=== PATIENT | female | born 1980 | race Caucasian/White ===

== ENCOUNTER 2019-06-17 22:08 | Emergency (ER) | payer MEDICAID ==
[~2019-06-17] VITALS: Ht 167.6 cm; Wt 74.8 kg
[2019-06-18 00:25] VITALS: BP 140/71
[2019-06-18] MEDS ORDERED: ACETAMINOPHEN/CODEINE#3 (300/30mg) TAB PO ONE (00:45)
== END 2019-06-18 00:55 | disposition home or self-care (01) ==
LOC: ER 22:10
DX: M25.562 Pain in left knee (principal); Z88.6 Allergy status to analgesic agent
CPT/HCPCS: 73562

== ENCOUNTER 2019-07-26 23:29 | Emergency (ER) | payer MEDICAID ==
[~2019-07-26] VITALS: Ht 167.6 cm; Wt 74.8 kg
[2019-07-27 00:06] VITALS: BP 127/72
[2019-07-27 00:22] LABS: Hemoglobin 7.7 g/dL (12.2-16.2); Red Blood Cells 3.86 10^6/uL (4.0-5.20); White Blood Cell 6.2 10^3/uL (4.4-10.8)
[2019-07-27 00:23] LABS: Hematocrit 26.3 % (36.0-46.0); Mean Corpuscular Hgb Conc. 29.4 g/dL (32.0-36.0); Platelet Count (auto) 285 10^3/uL (140-450); Red Cell Distribution Width 19.4 % (11.8-14.3)
[2019-07-27 00:30] LABS: Albumin 3.3 g/dL (3.4-5.0); BUN/Creatinine Ratio 9.7; Calcium 7.9 mg/dL (8.5-10.1); Magnesium 1.9 mg/dL (1.6-2.6); Potassium 3.5 mmol/L (3.5-5.1)
[2019-07-27 00:32] LABS: Basophils % (manual) 0 (0.0-2.0); Blast Cells 0; Metamyelocytes % 0; Myelocytes % 0; Promyelocytes % 0; Reactive Lymphocytes 0
[2019-07-27 00:33] LABS: Urine Amorphous Crystal FEW /hpf (None Seen); Urine Bacteria FEW /hpf (None Seen); Urine Blood Negative /uL (Negative); Urine Specific Gravity 1.008 (1.001-1.035); Urine WBC 10 /hpf (0 - 5)
[2019-07-27 00:35] LABS: Bilirubin, Total 0.2 mg/dL (0.2-1.0); Partial Thromboplastin Time 27.1 sec (23.64-32.05); Total Protein 7.3 g/dL (6.4-8.2)
[2019-07-27 01:45] LABS: Band Neutrophils % (manual) 1; Eosinophils % (manual) 1 (0-7); Lymphocytes % (manual) 47 (10.0-50.0); Monocytes % (manual) 3 (0-12)
== END 2019-07-27 01:45 | disposition home or self-care (01) ==
LOC: ER 23:32
DX: R42 Dizziness and giddiness (principal); N30.00 Acute cystitis without hematuria; F17.210 Nicotine dependence, cigarettes, uncomplicated; Z88.6 Allergy status to analgesic agent
CPT/HCPCS: 36415; 80053; 81001; 81025; 83735; 84484; 85007; 85027; 85610; 85730; 93005

== ENCOUNTER → 2020-04-19 | Outpatient (CLI) | payer OTHER | END | disposition home or self-care (01) | LOC: LAB 06:54 | PROVIDERS: ATTEND Nurse Practitioner Family | DX: Z20.828 Contact with and (suspected) exposure to other viral communicable diseases (principal) ==

== ENCOUNTER 2020-04-23 04:07 | Emergency (ER) | payer MEDICAID, OTHER ==
[~2020-04-23] VITALS: Ht 167.6 cm; Wt 74.8 kg
[2020-04-23] MEDS ORDERED: methylPREDNISolone SOD SUCC 125 MG/2 ML VL IM ONE (04:30)
[2020-04-23] MEDS ORDERED: LORATADINE 10 MG TAB PO ONE (04:30)
[2020-04-23 05:11] VITALS: BP 118/76
== END 2020-04-23 05:12 | disposition home or self-care (01) ==
LOC: EEVIPCON 04:07 → ER 04:07
DX: T78.40XA Allergy, unspecified, initial encounter (principal); F17.210 Nicotine dependence, cigarettes, uncomplicated; Z88.2 Allergy status to sulfonamides; Z88.6 Allergy status to analgesic agent; X58.XXXA Exposure to other specified factors, initial encounter
CPT/HCPCS: 96372; 99283; J2930

== ENCOUNTER 2020-04-28 04:17 | Inpatient (IN) | payer BC, MEDICAID ==
[~2020-04-28] VITALS: Ht 167.6 cm; Wt 72.0 kg
[2020-04-28 08:17] LABS: Hematocrit 20.7 % (36.0-46.0); Mean Corpuscular Hemoglobin 19.1 pg (28.0-32.0)
[2020-04-28 08:19] LABS: Mean Corpuscular Volume 67.9 fL (80.0-100.0); Platelet Count (auto) 210 10^3/uL (140-450); Red Blood Cells 3.04 10^6/uL (4.0-5.20); White Blood Cell 4.9 10^3/uL (4.4-10.8)
[2020-04-28 08:36] LABS: Calcium 7.5 mg/dL (8.5-10.1); Potassium 3.5 mmol/L (3.5-5.1)
[2020-04-28 08:37] LABS: Hemoglobin 5.8 g/dL (12.2-16.2); Red Cell Distribution Width 20.5 % (11.8-14.3)
[2020-04-28 08:39] LABS: Basophils % (manual) 0 (0.0-2.0); Blast Cells 0; Metamyelocytes % 0; Myelocytes % 0; Promyelocytes % 0; Reactive Lymphocytes 0
[2020-04-28 08:40] LABS: Bilirubin, Total 0.3 mg/dL (0.2-1.0); Total Protein 5.9 g/dL (6.4-8.2)
[2020-04-28 08:55] LABS: Band Neutrophils % (manual) 3; Eosinophils % (manual) 2 (0-7); Lymphocytes % (manual) 53 (10.0-50.0); Monocytes % (manual) 6 (0-12)
[2020-04-28] MEDS ORDERED: MORPHINE SULF INJ 2 MG/ML SYRINGE 1ML IV PRN (10:15)
[2020-04-28] MEDS ORDERED: NITROGLYCERIN 0.4 MG SL TAB SL PRN (10:15)
[2020-04-28] MEDS ORDERED: traMADol HCL 50 MG TAB PO PRN (10:30)
[2020-04-28] MEDS ORDERED: ACETAMINOPHEN 500 MG TAB PO PRN (10:30)
[2020-04-28] MEDS ORDERED: TEMAZEPAM 15 MG CAP PO PRN (10:30)
[2020-04-28] MEDS ORDERED: PROMETHAZINE HCL 25 MG/ML 1ML IV PRN (10:30)
[2020-04-28 10:52] LABS: % Iron Saturation 1.9 % (15-50)
[2020-04-28] MEDS: SODIUM CHLORIDE 0.9% 1,000 ML IV SCH ×2 (11:07→16:21)
[2020-04-28 11:29] VITALS: BP 121/77
--- NOTE | 2020-04-28 11:45 | NUR ---
RECEIVED REPORT FROM MELISSA HANSON IN ER WILL AWAIT PATIENT.
[2020-04-28 12:05] VITALS: BP 130/77
--- NOTE | 2020-04-28 12:05 | NUR ---
RECEIVED PATIENT TO THE FLOOR, AWAKE ALERT AND ORIENTED. BED LOCKED IN LOWEST POSITION WITH TWO SIDE RAILS UP AND CALL LIGHT IN REACH. INSTRUCTED THE PATIENT ON THE PLAN OF CARE. PATIENT CURRENTLY HAS BLOOD TRANSFUSING WITH NO S/S OF DISTRESS NOTED WILL INCREASE BLOOD RATE FROM 100ML/HR TO 150ML/HR. VS TAKEN UPON ARRIVAL AND CHARTED IN TRANSFUSION HISTORY. WILL RE ASSES PATIENTS VS WHEN TRANSFUSION IS COMPLETE.
--- NOTE | 2020-04-28 12:37 | NUR ---
MED REC PER PATIENT: SHE TAKES NO HOME MEDICATIONS
[2020-04-28 13:50] VITALS: BP 122/72
--- NOTE | 2020-04-28 13:50 | NUR ---
TRANSFUSION COMPLETE. PATIENT TOLERATED WELL NO S/S OF DISTRESS NOTED. VS DOCUMENTED ON BLOOD TRANSFUSION SHEET.
[2020-04-28 14:47] LABS: Folate (Folic Acid) 12.49 ng/mL (5.38-24)
[2020-04-28 17:00] VITALS: BP 107/70
[2020-04-28] MEDS: SUCRALFATE 1 GM/10 ML ORAL SUSP PO SCH ×2 (17:43→22:07)
[2020-04-28 18:58] LABS: Hematocrit 24.4 % (36.0-46.0); Hemoglobin 7.4 g/dL (12.2-16.2)
[2020-04-28 21:45] VITALS: BP 124/62
[2020-04-28] MEDS: FAMOTIDINE 20 MG TAB PO SCH (22:07)
[2020-04-28] MEDS: MORPHINE SULF INJ 2 MG/ML SYRINGE 1ML IV PRN (22:07)
[2020-04-29] VITALS (9 sets, daily range): BP systolic 109–125; BP diastolic 61–79
[2020-04-29 00:59] LABS: Hematocrit 22.4 % (36.0-46.0)
[2020-04-29 01:09] LABS: Hemoglobin 6.6 g/dL (12.2-16.2)
--- NOTE | 2020-04-29 01:10 | NUR ---
CRITICAL HGB OF 6.6 RECEIVED. HOSPITALIST PAGED, AWAITING CALL BACK.
--- NOTE | 2020-04-29 01:25 | NUR ---
ORDERS RECEIVED AND BEING CARRIED OUT
[2020-04-29] MEDS: SODIUM CHLORIDE 0.9% 1,000 ML IV SCH ×3 (02:16→17:53)
[2020-04-29] MEDS: SUCRALFATE 1 GM/10 ML ORAL SUSP PO SCH ×4 (06:32→22:55)
--- NOTE | 2020-04-29 08:00 | NUR ---
Opening Shift Note Assumed care of patient, awake, alert and oriented X4. No S/S of distress/SOB or pain. Tele# 80, sinus rhythm @ 72 bpm. IV X2, right antecubital, 20 gauge, patent and infusing PRBC's and right hand, 22 gauge, patent and infusing 0.9% NS @ 125 ml/hr. Patient has bilateral axillary rash, see wound care pictures. Instructed on POC and to call for assist PRN, verbalized understanding. Bed locked, in lowest position, call light within reach, will continue to monitor for changes Q1hr and PRN.
--- NOTE | 2020-04-29 08:42 | NUR ---
PRBC's PRBC's completed. No adverse reaction noted.
[2020-04-29 10:04] LABS: Hemoglobin 7.3 g/dL (12.2-16.2); White Blood Cell 4.7 10^3/uL (4.4-10.8)
[2020-04-29 10:06] LABS: Hematocrit 24.4 % (36.0-46.0); Mean Corpuscular Hemoglobin 21.3 pg (28.0-32.0); Mean Corpuscular Hgb Conc. 30.1 g/dL (32.0-36.0); Mean Corpuscular Volume 70.8 fL (80.0-100.0); Platelet Count (auto) 201 10^3/uL (140-450); Red Blood Cells 3.44 10^6/uL (4.0-5.20)
[2020-04-29 10:23] LABS: Red Cell Distribution Width 22.5 % (11.8-14.3)
[2020-04-29 10:25] LABS: Band Neutrophils % (manual) 0; Basophils % (manual) 0 (0.0-2.0); Blast Cells 0; Metamyelocytes % 0; Myelocytes % 0; Promyelocytes % 0; Reactive Lymphocytes 0
[2020-04-29] MEDS: FAMOTIDINE 20 MG TAB PO SCH ×2 (10:55→22:55)
[2020-04-29 11:45] LABS: Eosinophils % (manual) 2 (0-7); Lymphocytes % (manual) 46 (10.0-50.0); Monocytes % (manual) 4 (0-12)
[2020-04-29 13:19] LABS: Hematocrit 24.1 % (36.0-46.0)
[2020-04-29 13:21] LABS: Hemoglobin 7.2 g/dL (12.2-16.2)
--- NOTE | 2020-04-29 14:01 | NUR ---
GI Dr Gonzales Llanos at bedside for GI follow up. New orders received and followed through. Patient updated on plan of care, verbalized understanding.
[2020-04-29] MEDS ORDERED: CYANOCOBALAMIN (B-12) 1000 MCG/1 ML VIAL IM ONE (15:00)
[2020-04-29 18:25] LABS: Hematocrit 28.2 % (36.0-46.0); Hemoglobin 8.3 g/dL (12.2-16.2)
[2020-04-29 18:33] LABS: INR 1.03 (0.9-1.15)
--- NOTE | 2020-04-29 19:11 | NUR ---
Care endorsed to VALENTIN Ackerman, night nurse.
[2020-04-29 20:49] LABS: Urine Bacteria NONE SEEN /hpf (None Seen); Urine Blood Negative /uL (Negative); Urine Specific Gravity 1.005 (1.001-1.035); Urine WBC 1 /hpf (0 - 5)
[2020-04-30] MEDS: SODIUM CHLORIDE 0.9% 1,000 ML IV SCH ×3 (02:16→14:14)
[2020-04-30] MEDS: MORPHINE SULF INJ 2 MG/ML SYRINGE 1ML IV PRN (04:46)
[2020-04-30 05:00] VITALS: BP 116/75
[2020-04-30 06:21] LABS: Basophils # (auto) 0 10 ^3/uL (0-0.2); Basophils % (auto) 0.7 % (0.0-2.0); Eosinophils # (auto) 0.1 10 ^3/uL (0-0.8); Eosinophils % (auto) 1.6 % (0.0-7.0); Hematocrit 25.6 % (36.0-46.0); Hemoglobin 7.7 g/dL (12.2-16.2); Lymphocytes # (auto) 2.2 10 ^3/uL (0.4-5.4); Lymphocytes % (auto) 48.9 % (10.0-50.0); Mean Corpuscular Hemoglobin 21.6 pg (28.0-32.0); Mean Corpuscular Hgb Conc. 30.3 g/dL (32.0-36.0); Mean Corpuscular Volume 71.3 fL (80.0-100.0); Monocytes # (auto) 0.4 10 ^3/uL (0-1.3); Monocytes % (auto) 8.3 % (0.0-12.0); Neutrophils # (auto) 1.8 10 ^3/uL (1.6-8.6); Neutrophils % (auto) 40.5 % (37.0-80.0); Platelet Count (auto) 205 10^3/uL (140-450); Red Blood Cells 3.59 10^6/uL (4.0-5.20); White Blood Cell 4.5 10^3/uL (4.4-10.8)
[2020-04-30 06:23] LABS: Red Cell Distribution Width 22.8 % (11.8-14.3)
[2020-04-30 06:36] LABS: BUN/Creatinine Ratio 13.2; Calcium 7.3 mg/dL (8.5-10.1); Potassium 3.5 mmol/L (3.5-5.1)
[2020-04-30] MEDS: SUCRALFATE 1 GM/10 ML ORAL SUSP PO SCH ×4 (06:43→22:09)
--- NOTE | 2020-04-30 07:47 | NUR ---
PROCEDURE SCHEDULE PER DR Gonzales [place] PATIENT TO HAVE EGD DONE AT 1330 TODAY PATIENT ADDED TO THE SCHEDULE
--- NOTE | 2020-04-30 08:00 | NUR ---
Opening Shift Note Assumed care of patient, awake, alert and oriented X4. No S/S of distress/SOB or pain. Tele# 80, sinus rhythm @ 64 bpm. IV X2, right antecubital, 20 gauge, patent and infusing 0.9% NS @ 125 ml/hr and right hand, 22 gauge, patent and saline locked. Patient has bilateral axillary rash, see wound care pictures. Instructed on POC and to call for assist PRN, verbalized understanding. Bed locked, in lowest position, call light within reach, will continue to monitor for changes Q1hr and PRN
[2020-04-30 08:48] VITALS: BP 129/78
[2020-04-30] MEDS: FAMOTIDINE 20 MG TAB PO SCH ×2 (09:27→22:09)
--- NOTE | 2020-04-30 12:15 | NUR ---
ROUNDS Dr Seymour at bedside for rounds, no new orders received at this time. Patient updated on plan of care, verbalized understanding.
[2020-04-30] MEDS ORDERED: LIDOCAINE VISCOUS 2% 15ML UD ONE (12:21)
[2020-04-30] MEDS ORDERED: SODIUM CHLORIDE LOCK 10 ML ONE (12:23)
--- NOTE | 2020-04-30 12:52 | NUR ---
OR Patient taken to OR via bed for EGD, no distress noted upon departure. Care endorsed to Bre, RN, OR.
[2020-04-30] MEDS: MIDAZOLAM HCL 5 MG/ML-1ML VIAL ONE ×3 (13:15→13:21)
[2020-04-30] MEDS: fentaNYL CITRATE 100 MCG/2 ML VL ONE ×3 (13:15→13:21)
[2020-04-30] MEDS: diphenhdrAMINE HCL 50 MG/1 ML VL ONE ×2 (13:18→13:21)
--- NOTE | 2020-04-30 14:12 | NUR ---
RECOVERY Verbal report received from VALENTIN Díaz. Patient brought up to room via bed, no distress noted upon return.
--- NOTE | 2020-04-30 16:18 | NUR ---
Nutrition Assessment Notes Please refer to link for full assessment notes. Est Energy needs: [id number] kcals (23-25 kcal/kgBW) Est Protein needs: 58-72 gms/day (0.8-1.0 gm/kgBW) Will continue to monitor and reassess prn. Addendum: 04/30/20 at [address] Amended: Links added.
[2020-04-30 16:55] VITALS: BP 92/53
[2020-04-30] MEDS: FERROUS SULFATE 325 MG TAB PO SCH (17:53)
--- NOTE | 2020-04-30 19:01 | NUR ---
Care endorsed to VALENTIN Ackerman, night nurse.
[2020-04-30 21:55] VITALS: BP 104/62
[2020-05-01 05:00] VITALS: BP 122/78
[2020-05-01 05:46] LABS: Basophils # (auto) 0 10 ^3/uL (0-0.2); Eosinophils # (auto) 0.1 10 ^3/uL (0-0.8); Eosinophils % (auto) 1.2 % (0.0-7.0); Monocytes # (auto) 0.4 10 ^3/uL (0-1.3); Nucleated Red Blood Cells % 0.1 %; White Blood Cell 6.1 10^3/uL (4.4-10.8)
[2020-05-01 05:56] LABS: Basophils % (auto) 0.4 % (0.0-2.0); Hematocrit 29.2 % (36.0-46.0); Hemoglobin 8.5 g/dL (12.2-16.2); Lymphocytes # (auto) 2.7 10 ^3/uL (0.4-5.4); Lymphocytes % (auto) 43.8 % (10.0-50.0); Mean Corpuscular Hemoglobin 20.8 pg (28.0-32.0); Mean Corpuscular Volume 71.8 fL (80.0-100.0); Monocytes % (auto) 6.9 % (0.0-12.0); Neutrophils # (auto) 2.9 10 ^3/uL (1.6-8.6); Neutrophils % (auto) 47.7 % (37.0-80.0); Platelet Count (auto) 220 10^3/uL (140-450); Red Blood Cells 4.06 10^6/uL (4.0-5.20)
[2020-05-01 06:08] LABS: Potassium 3.6 mmol/L (3.5-5.1)
[2020-05-01 06:17] LABS: BUN/Creatinine Ratio 11.7
[2020-05-01 06:45] LABS: Red Cell Distribution Width 23.5 % (11.8-14.3)
[2020-05-01] MEDS: SUCRALFATE 1 GM/10 ML ORAL SUSP PO SCH ×2 (07:00→11:30)
[2020-05-01 08:00] VITALS: BP 121/79
[2020-05-01 09:00] VITALS: BP 121/79
[2020-05-01] MEDS: SODIUM CHLORIDE 0.9% 1,000 ML IV SCH (09:19)
[2020-05-01] MEDS: FERROUS SULFATE 325 MG TAB PO SCH (09:19)
[2020-05-01] MEDS: FAMOTIDINE 20 MG TAB PO SCH (09:19)
[2020-05-01 12:41] VITALS: BP 121/79
[2020-05-01 13:00] VITALS: BP 116/76
--- NOTE | 2020-05-01 15:12 | NUR ---
Discharge instructions given as ordered. Encourage to follow up with PMD as instructed. All questions and concerns addressed. Patient verbalized understanding. Medication reconciliation form completed and copy given to patient. No Home medications held in Pharmacy and none to be returned to patient, and no needed vaccines given. IV removed with catheter intact, pressure dressing applied. Telemetry unit returned to ICU. Patient ambulated to vehicle via with all personal belongings, accompanied by staff and family member. No distress noted at time of departure.
== END 2020-05-01 15:30 | disposition home or self-care (01) | DRG 663 ==
LOC: EEVIPCON 04:17 → ER 04:17 → TELE 04:18 → TELE-WESTW 12:15
PROVIDERS: ADMIT Internal Medicine; ATTEND Internal Medicine
PROC: 30233N1 Transfusion of Nonautologous Red Blood Cells into Peripheral Vein, Percutaneous Approach (ICD-10-PCS; 2020-04-28)
PROC: 0DB88ZX Excision of Small Intestine, Via Natural or Artificial Opening Endoscopic, Diagnostic (ICD-10-PCS; 2020-04-30)
PROC: 0DB68ZX Excision of Stomach, Via Natural or Artificial Opening Endoscopic, Diagnostic (ICD-10-PCS; principal; 2020-04-30 13:10)
DX: D50.9 Iron deficiency anemia, unspecified (principal); K29.00 Acute gastritis without bleeding; G56.01 Carpal tunnel syndrome, right upper limb; E66.3 Overweight; N39.0 Urinary tract infection, site not specified; E66.9 Obesity, unspecified; K44.9 Diaphragmatic hernia without obstruction or gangrene; K29.70 Gastritis, unspecified, without bleeding; E44.1 Mild protein-calorie malnutrition; F17.210 Nicotine dependence, cigarettes, uncomplicated; F41.9 Anxiety disorder, unspecified; Z88.1 Allergy status to other antibiotic agents; R21 Rash and other nonspecific skin eruption; Z98.84 Bariatric surgery status; Z68.25 Body mass index [BMI] 25.0-25.9, adult; Z88.6 Allergy status to analgesic agent
CPT/HCPCS: 36415; 70450; 71045; 80048; 80053; 81001; 81025; 82270; 82607; 82728; 82746; 83540; 83550; 84484; 85007; 85014; 85018; 85025; 85027; 85045; 85610; 85652; 86141; 86850; 86900; 86901; 86920; 87086; 93005; 99291; G0378; J2250